=== PATIENT | female | born 1990 | race African-American/Black ===

== ENCOUNTER 2021-02-21 23:16 | Emergency (ER) | payer MEDICAID, SELFPAY ==
[2021-02-21 23:21] VITALS: BP 123/80; PULSE 77; RESP 16; TEMP 36.9; O2SAT 100
--- NOTE | 2021-02-21 23:39 | ED.GENADULT ---
HPI - General Adult General Chief complaint: Skin/Abscess/Foreign Body Stated complaint: Finger lac/abcess Time Seen by Provider: 02/21/21 23:30 History of Present Illness HPI narrative: Patient 30-year-old female presents the emergency department with chief complaint of infection under fingernail. The patient reports that she had acrylic nails placed and reports that she had swelling and then had purulent drainage from underneath the fingernail of her right index finger. Patient states that the area is painful and her nail feels as though it is somewhat looser. Patient would like to have her nail removed but has been to the nail salon and they told her that they would have to soak her finger in acetone and given the open wound they did not recommend that. Patient denies fever denies chills reports that the finger feels a little swollen. Related Data Allergies Allergy/AdvReac Type Severity Reaction Status Date / Time No Known Allergies Allergy Verified 02/21/21 23:44 Review of Systems Review of Systems: Narrative: A 10 system review of systems was completed on the patient and is negative except for what is stated in the HPI. Nursing and ancillary documentation was reviewed. Exam Narrative: Exam Narrative: GENERAL: Well-appearing, well-nourished, and in no acute distress. HEAD: Normocephalic, atraumatic. EYES: PERRLA and EOMI. ENT: Nares clear, no rhinorrhea or epistaxis. Mucous membranes moist. NECK: Supple. CHEST: Clear to auscultation. No respiratory distress. HEART: Regular rate and rhythm. No murmur heard. Normal peripheral pulses. ABDOMEN: Soft, nontender, nondistended, normal active bowel sounds. EXTREMITIES: Normal range of motion. No edema. Right index finger there is a small amount of purulent drainage from underneath the fingernail there is a intact acrylic nail present on the patient's standard nail. There is no fluctuance noted. The tip of the finger is slightly erythematous. SKIN: Warm, dry, no rash. NEURO: No focal deficits. Alert and oriented x3. PSYCH: Normal mood and affect. Course Vital Signs Vital signs: Vital Signs Temperature 36.9 C 02/21/21 23:21 Pulse Rate 77 02/21/21 23:21 Respiratory Rate 16 02/21/21 23:21 Blood Pressure 123/80 02/21/21 23:21 Pulse Oximetry 100 02/21/21 23:21 Temperature 36.9 C 02/21/21 23:21 Pulse Rate 77 02/21/21 23:21 Respiratory Rate 16 02/21/21 23:21 Blood Pressure 123/80 02/21/21 23:21 Pulse Oximetry 100 02/21/21 23:21 Medical Decision Making Vital Signs Vital Signs: Vital Signs Temperature 36.9 C 02/21/21 23:21 Pulse Rate 77 02/21/21 23:21 Respiratory Rate 16 02/21/21 23:21 Blood Pressure 123/80 02/21/21 23:21 Pulse Oximetry 100 02/21/21 23:21 Temperature 36.9 C 02/21/21 23:21 Pulse Rate 77 02/21/21 23:21 Respiratory Rate 16 02/21/21 23:21 Blood Pressure 123/80 02/21/21 23:21 Pulse Oximetry 100 02/21/21 23:21 Discharge Plan Discharge Clinical Impression: Abscess around fingernail of right hand Patient Disposition: Home, Self-Care Condition: Stable Instructions: Antibiotic Form, Paronychia (ED), Abscess (ED) Additional Instructions: Currently the wound is draining on its own the acrylic nail should become loose and detached on its own. If you develop high fevers if the redness and swelling worsens please seek reevaluation Prescriptions: New sulfamethoxazole-trimethoprim [Bactrim DS] 800-160 mg tablet 1 tablet PO Q12H Qty: 14 RF: 0 Follow-up/Referrals: Emeka Ma MD [Physician] - [facility] [Primary Care Provider] - Time of Disposition: 23:43
[2021-02-21] MEDS: HYDROcodone/acetaminophen (*CRX) 5-325 MG TABLET 1 TAB PO (23:49)
== END 2021-02-22 00:15 | disposition home or self-care (01) ==
PROVIDERS: Emergency Provider Emergency Medicine
DX: L03.011 Cellulitis of right finger (principal)
CPT/HCPCS: 99283; A9270